=== PATIENT | female | born 2000 | race Two or more races ===

== ENCOUNTER 2025-04-26 16:40 | Emergency (ER) | payer SELFPAY ==
[2025-04-26 17:00] VITALS: BP 118/75; PULSE 97; RESP 20; TEMP 37.4; O2SAT 98; BMI 25.3
--- NOTE | 2025-04-26 17:15 | PD.EDRME ---
Rapid Medical Screening Exam RME Arrival date/time: 04/26/25 16:40 24-year-old female with no significant medical problems presents to the emergency department today for complaints of cough, congestion, runny nose generalized bodyaches and fever Chief Complaint: Flu Like Symptoms Time Seen by Provider: 04/26/25 16:41 Vital signs: Vital Signs Temperature 99.4 F 04/26/25 17:00 Pulse Rate 97 04/26/25 17:00 Respiratory Rate 20 04/26/25 17:00 Blood Pressure 118/75 04/26/25 17:00 Pulse Oximetry (%) 98 04/26/25 17:00 Oxygen Delivery Method Room Air 04/26/25 17:00
[2025-04-26 17:49] LABS: Collection Type, Urine Clean Catch
[2025-04-26 17:57] LABS: HCG Qualitative,Urine Negative
[2025-04-26 18:01] LABS: Strep A Rapid Negative (Negative)
[2025-04-26 18:01] LABS: Bacteria,Urine Rare; Bilirubin,Urine Negative (Negative); Blood,Urine Negative (Negative); Clarity,Urine Clear (Clear/Hazy); Color,Urine Yellow (Lt Yel-Yel); Culture Indicated,Urine Not Indicated; Glucose, Urine Negative (Negative); Ketones,Urine 2+ (Negative); Leukocyte Esterase,Urine Negative (Negative); Nitrite,Urine Negative (Negative); PH,Urine 6.5 (5.0-7.0); Protein,Urine Trace (Neg - Trace); RBC,Urine 3 /hpf (0-3); Specific Gravity,Urine 1.028 (1.001-1.035); Squamous Epithelial Cell,Urine 2 /hpf (0-5); Urobilinogen,Urine 2.0 mg/dL (0.0-1.0); WBC,Urine 2 /hpf (0-5)
--- NOTE | 2025-04-26 19:27 | PC.NURSE ---
NO ANSWER FOR REVIEW
--- NOTE | 2025-04-26 19:38 | PC.NURSE ---
NO ANSWER FOR REVIEW
--- NOTE | 2025-04-26 19:59 | PC.NURSE ---
NO ANSWER FOR REVIEW
== END 2025-04-26 19:59 | disposition left against medical advice (07) ==
PROVIDERS: Nurse Practitioner Primary Care; Emergency Provider Emergency Medicine
DX: R05.9 Cough, unspecified (principal); R50.9 Fever, unspecified; R09.81 Nasal congestion; R09.89 Other specified symptoms and signs involving the circulatory and respiratory systems; Z53.29 Procedure and treatment not carried out because of patient's decision for other reasons
CPT/HCPCS: 81001; 81025; 87400; 87651; 87811; 99283